=== PATIENT | male | born 1995 | race Caucasian/White ===

== ENCOUNTER 2017-11-06 22:58 | Emergency (ER) | payer OTHER ==
[2017-11-06 23:22] VITALS: RESP 17; TEMP 99.1
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
[2017-11-07] MEDS ORDERED: CEPHALEXIN 500MG STARTER PACK 4 CAP BTL PO STA (00:32)
[2017-11-07 00:48] VITALS: BP 130/86; PULSE 69
--- NOTE | 2017-11-07 01:00 | XR ---
EXAM: XR Right Elbow Complete, 3 or More Views CLINICAL HISTORY: Reason: Pain TECHNIQUE: Frontal, lateral and oblique views of the right elbow. COMPARISON: No relevant prior studies available. FINDINGS: Bones/joints: No acute fracture or dislocation. Soft tissues: Unremarkable. IMPRESSION: No acute fracture or dislocation.
== END 2017-11-07 00:49 | disposition home or self-care (01) ==
LOC: EC 22:58
DX: S51.831A Puncture wound without foreign body of right forearm, initial encounter (principal); Z79.899 Other long term (current) drug therapy; V86.02XA Driver of snowmobile injured in traffic accident, initial encounter; Y93.29 Activity, other involving ice and snow
CPT/HCPCS: 99284

== ENCOUNTER 2019-07-10 09:21 | Emergency (ER) | payer OTHER ==
[2019-07-10 09:27] VITALS: BP 132/86; PULSE 60; RESP 18; TEMP 97.5
[2019-07-10] MEDS ORDERED: CEPHALEXIN 500MG STARTER PACK 4 CAP BTL PO STA (09:35)
--- NOTE | 2019-07-10 09:40 | ED ---
Upper Extremity HPI - General Chief Complaint: Extremity Injury, Upper Stated Complaint: Wire though finger-[facility] Time Seen by Provider: 07/10/19 09:27 Source: patient Mode of arrival: ambulatory Limitations: no limitations - History of Present Illness Initial Comments: 23-year-old male presenting today for chief complaint of right index finger pain. Patient states that he was at work when he is attempting to thread a wire through tag. There is no electrical current going through the wire. Patient states the wire went through his finger he states his tetanus before. Patient states the were entered on the ventral aspect. Patient denies any limitation to range of motion. Denies any decreased strength loss sensation numbness or tingling. Patient states bleeding is controlled. States there is only a small puncture. Because the incident happened at work patient was told to come to emergency department for further evaluation. Patient removed the wire himself. Patient states his tetanus is up-to-date within the last 5-10 years. Remaining review of system negative. - Related Data Previous Rx's Medication Instructions Recorded Cephalexin [Keflex] 500 mg PO Q8HR 7 Days #21 cap 07/10/19 Allergies Allergy/AdvReac Type Severity Reaction Status Date / Time No Known Allergies Allergy Verified 07/10/19 09:36 Review of Systems ROS Statement: Those systems with pertinent positive or pertinent negative responses have been documented in the HPI. ROS Other: All systems not noted in ROS Statement are negative. Past Medical History Past Medical History: No Reported History History of Any Multi-Drug Resistant Organisms: None Reported Past Surgical History: Orthopedic Surgery Additional Past Surgical History / Comment(s): shoulder Past Psychological History: No Psychological Hx Reported Smoking Status: Never smoker Past Alcohol Use History: Occasional Past Drug Use History: None Reported General Exam - General Exam Comments Initial Comments: General: The patient is awake and alert, in no distress, and does not appear acutely ill. Eye: Pupils are equal, round,extra-ocular movements are intact. No nystagmus. There is normal conjunctiva bilaterally. No signs of icterus. Cardiovascular: There is a regular rate and rhythm. No murmur, rub or gallop is appreciated. Respiratory: Lungs are clear to auscultation, respirations are non-labored, breath sounds are equal. No wheezes, stridor, rales, or rhonchi. Musculoskeletal: Normal ROM, no tenderness. Strength 5/5. Sensation intact. Pulses equal bilaterally 2+. Neurological: A&O x 3. CN II-XII intact grossly, There are no obvious motor or sensory deficits. Coordination appears grossly intact. Speech is normal. Skin: Skin is warm and dry and no rashes. Small less than that of pencil tip puncture on the ventral aspect just distal to the PIP joint. NO active bleeidng no erythema. The MCP PIP and DIP joints were isolated of all 5 digits of the right hand no limitations in range of motion or decreased strength including the affected digit. Sensation intact capillary refill less than 3 seconds. Psychiatric: Cooperative, appropriate mood & affect, normal judgment. Limitations: no limitations Course Vital Signs 07/10/19 09:25 Temperature 97.5 F L Pulse Rate 60 Respiratory 18 Rate Blood Pressure 132/86 O2 Sat by Pulse 98 Oximetry Medical Decision Making - Medical Decision Making 23-year-old male presenting for right index finger pain after wire threaded through finger pad. Patient has no evidence of osseous injury or retained foreign body on imaging studies. Patient's tetanus up-to-date. Patient is neurovascularly intact. There is no evidence of tendon injury on physical examination. At this time bleeding is controlled. Given that this was a puncture wound the area was cleansed patient be started on prophylactic antibiotics given the risk of infection. Return parameters were discussed as well as the signs of soft tissue infection such as flexor tenosynovitis patient verbalized understanding of the importance of antibiotic adherence and return parameters. Patient is to follow-up primary care provider in 2 days. Otherwise at this time feel patient is stable for discharge. Discussed the case mentally provider who is agreeable to this care plan as well Disposition Clinical Impression: Puncture, Finger pain, right Disposition: HOME SELF-CARE Condition: Good Instructions (If sedation given, give patient instructions): Puncture Wound (ED) Additional Instructions: Please use medication as discussed. Please follow-up with family doctor in the next 2 days. Please return to emergency room if the symptoms increase or worsen or for any other concerns-finger swelling, limitations in movement of finger, redness, warmth, increasing pain as discussed. Prescriptions: Cephalexin [Keflex] 500 mg PO Q8HR 7 Days #21 cap Is patient prescribed a controlled substance at d/c from ED?: No Referrals: None,Stated [Primary Care Provider] - 1-2 days [facility]'Mariah Alcantara [NON-STAFF] - 1-2 days Time of Disposition: 09:59
--- NOTE | 2019-07-10 09:54 | XR ---
EXAMINATION TYPE: XR hand limited RT DATE OF EXAM: 07/10/2019 CLINICAL HISTORY: Injury with pain. TECHNIQUE: Frontal and lateral images of the right hand are obtained. COMPARISON: None. FINDINGS: There is no acute fracture/dislocation evident in the right hand. The joint spaces in the right hand appear within normal limits. The overlying soft tissue appears unremarkable without suspi cious metallic foreign body or wire identified. Bracelet overlies the right wrist. IMPRESSION: As above.
== END 2019-07-10 10:27 | disposition home or self-care (01) ==
LOC: EC 09:21
DX: S61.230A Puncture wound without foreign body of right index finger without damage to nail, initial encounter (principal); W45.8XXA Other foreign body or object entering through skin, initial encounter; Y92.69 Other specified industrial and construction area as the place of occurrence of the external cause; Y99.0 Civilian activity done for income or pay
CPT/HCPCS: 99283

== ENCOUNTER 2019-08-16 12:18 | Emergency (ER) | payer OTHER ==
[2019-08-16 12:31] VITALS: TEMP 98.6
[2019-08-16] MEDS ORDERED: LIDOCAINE 1% INJ 10MG/ML (20 ML MDV) SQ ONE (12:43)
--- NOTE | 2019-08-16 12:43 | ED ---
Wound/Laceration HPI - General Chief Complaint: Wound/Laceration Stated Complaint: Hand laceration, [facility] Time Seen by Provider: 08/16/19 12:35 Source: patient Mode of arrival: ambulatory Limitations: no limitations - History of Present Illness Initial Comments: 23-year-old male no past medical history presenting today for chief complaint of laceration to the left thenar emesis. Patient states that just prior to arrival was at work using a tool when a small piece of it which was metal flung out and cut him. Patient states he does not live there is foreign body. States his tetanus up-to-date. Patient denies any limitations in range of motion numbness tingling or loss sensation of the digit. Patient states it appears superficial and if he was never daily at bedtime superglue the wound shut. Patient has no other complaints. Patient appears well upon arrival. Remaining ROS (-). - Related Data Home Medications Medication Instructions Recorded Confirmed No Known Home Medications 08/16/19 08/16/19 Previous Rx's Medication Instructions Recorded Cephalexin [Keflex] 500 mg PO Q12HR 5 Days #10 cap 08/16/19 Allergies Allergy/AdvReac Type Severity Reaction Status Date / Time No Known Allergies Allergy Verified 08/16/19 14:05 Review of Systems ROS Statement: Those systems with pertinent positive or pertinent negative responses have been documented in the HPI. ROS Other: All systems not noted in ROS Statement are negative. Past Medical History Past Medical History: No Reported History History of Any Multi-Drug Resistant Organisms: None Reported Past Surgical History: Orthopedic Surgery Additional Past Surgical History / Comment(s): shoulder Past Psychological History: No Psychological Hx Reported Smoking Status: Never smoker Past Alcohol Use History: Occasional Past Drug Use History: None Reported General Exam - General Exam Comments Initial Comments: General: The patient is awake and alert, in no distress, and does not appear acutely ill. Eye: Pupils are equal, round and reactive to light, extra-ocular movements are intact. No nystagmus. There is normal conjunctiva bilaterally. No signs of icterus. Cardiovascular: There is a regular rate and rhythm. No murmur, rub or gallop is appreciated. Respiratory: Lungs are clear to auscultation, respirations are non-labored, breath sounds are equal. No wheezes, stridor, rales, or rhonchi. Musculoskeletal: Normal ROM IP MCP joints, no tenderness. Strength 5/5 at the IP and MCP joints no limitations. Sensation intact. Radial pulses equal bilaterally 2+. Neurological: A&O x 3. CN II-XII intact, There are no obvious motor or sensory deficits. Coordination appears grossly intact. Speech is normal. Skin: Skin is warm and dry and no rashes or lesions are noted. 1.5cm laceration of the thenar eminence ventral aspect appears superficial follows skin lines, horizontal, straight line, more superficial on edges. No active bleeding Psychiatric: Cooperative, appropriate mood & affect, normal judgment. Limitations: no limitations Course Vital Signs 08/16/19 08/16/19 12:28 14:19 Temperature 98.6 F Pulse Rate 61 60 Respiratory 20 16 Rate Blood Pressure 140/87 142/82 O2 Sat by Pulse 99 98 Oximetry Procedures - Laceration Laceration #1 Consent Obtained: verbal consent Indication: laceration Site: hand Size (cm): 2 (1.5 actual size wont let me put decimals) Description: linear Depth: simple, single layer Anesthetic Used: lidocaine 1% Anesthesia Technique: local infiltration Amount (mls): 2 Pre-repair: wound explored, irrigated extensively, deep structures intact Type of Sutures: nylon Size of Sutures: 5-0 Number of Sutures: 3 Technique: simple, interrupted Patient Tolerated Procedure: well, no complications Medical Decision Making - Medical Decision Making 23-year-old male presents emergency department for evaluation of hand laceration near the thenar emesis of left thumb. Very clean laceration. X-ray revealed no foreign body no foreign body on examination. 3, 5.0 nylon sutures were used to close the wound after irrigation, cleansing with iodoine. Bacitracin and bandage was applied. Patient had no signs of tendon injury. The range of motion at the MCP and IP joint. Patient obviously intact. Head is up-to-date at this time I do feel patient is stable for discharge with outpatient primary care follow-up and return for suture removal in 7-10 days. Return parameters were discussed patient verbalized understanding. Disposition Clinical Impression: Hand laceration Disposition: HOME SELF-CARE Condition: Good Instructions (If sedation given, give patient instructions): Care For Your Stitches (ED), Laceration (ED) Additional Instructions: Please use medication as discussed. Please return for suture removal in 7-10 days. Please return to emergency room if the symptoms increase or worsen or for any other concerns, redness drainage increasing pain fevers. Prescriptions: Cephalexin [Keflex] 500 mg PO Q12HR 5 Days #10 cap Is patient prescribed a controlled substance at d/c from ED?: No Referrals: None,Stated [Primary Care Provider] - 1-2 days Time of Disposition: 14:05
--- NOTE | 2019-08-16 13:14 | XR ---
EXAMINATION TYPE: XR finger LT DATE OF EXAM: 08/16/2019 COMPARISON: NONE HISTORY: Left thumb laceration TECHNIQUE: 3 views of left thumb were obtained FINDINGS: No acute fracture or dislocation is seen in the left thumb. No osseous laceration. No radio paque foreign body seen. IMPRESSION: No radiopaque foreign body, fracture, nor osseous laceration of the first left finger (th umb).
[2019-08-16 14:20] VITALS: BP 142/82; PULSE 60; RESP 16
== END 2019-08-16 14:19 | disposition home or self-care (01) ==
LOC: EC 12:18
DX: S61.412A Laceration without foreign body of left hand, initial encounter (principal); W26.8XXA Contact with other sharp object(s), not elsewhere classified, initial encounter; Y93.89 Activity, other specified; Y92.69 Other specified industrial and construction area as the place of occurrence of the external cause; Y99.0 Civilian activity done for income or pay
CPT/HCPCS: 73140; 99283; 12001; J2001